=== PATIENT | male | born 1960 | race Caucasian/White ===

== ENCOUNTER 2024-02-18 16:05 | Emergency (ER) | payer OTHER, SELFPAY ==
[2024-02-18 16:09] VITALS: BP 150/81
[2024-02-18 16:22] VITALS: BMI 31.7
--- NOTE | 2024-02-18 16:57 | ED.SKININJ ---
HPI-Injury
General
Chief Complaint: Skin Problem
Source: patient
Exam Limitations: none
Time Seen by Provider: 02/18/24 16:33
Nursing documentation reviewed up to this point in time: agreed with
History of Present Illness-Injury
Initial Injury comments:
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
left ankle, the next morning he noted redness and swelling in the area. He thinks it may be an insect bite. He takes ibuprofen 800 mg 3 times a day for his headaches and this has helped the pain in his ankle. He denies N/V, denies fever or chills.
Past History
Past History
ED Past Medical History: HTN, NIDDM and Other ( migraines, traumatic brain injury, kidney stone)
ED Past Surgical History: Appendectomy, Cholecystectomy and Orthopedic
Social History
Tobacco: Former smoker (occasional cigar)
Alcohol: Occasional
Drug: None
Personal: Single
Living: with family
Employment: Not employed
Family History
Family History: Hypertension
Review of Systems
Review of Systems
Allergies reviewed?: Yes
All Other Systems: ROS reviewed and negative except as documented in HPI and ROS
Constitutional: Denies fever or chills
ABD/GI: Denies abdominal pain or nausea
Skin: Reports other (red, tender, swelling anteriorleft ankle past 2 days)
Neurological: Reports headache (chronic)
Phy Exam
Physical Exam
Physical Exam:
GENERAL: No acute distress. A&Ox3.
CONSTITUTIONAL: Afebrile.
RESPIRATORY: Regular respirations, nonlabored, lungs clear.
CARDIOVASCULAR: Regular rate and rhythm, no murmurs, no rubs.
GI: Soft, nontender, normal BS
MUSCULOSKELETAL: Moves with ease. Well perfused. Pt ambulates well
SKIN: Warm, dry, pink, Local red, tender mildly swollen area anterior left ankle. Skin intact, erythematous, no lymphangitis. Distal n/v intact.
PSYCH: Normal mood and affect. Well kept, interactive and appropriate
NEUROLOGIC: Awake, alert and oriented. No focal neurological deficits
Course
Vital Signs
Initial and Last Documented VS:
Initial Vital Signs
Temp Pulse Resp BP Pulse Ox
98.2 F 64 16 150/81 97
02/18/24 16:09 02/18/24 16:09 02/18/24 16:09 02/18/24 16:09 02/18/24 16:09
Last Documented Vital Signs
Temp Pulse Resp BP Pulse Ox
98.2 F 64 16 150/81 97
02/18/24 16:09 02/18/24 16:09 02/18/24 16:09 02/18/24 16:09 02/18/24 16:09
MDM/Problems Addressed
Differential Diagnosis Includes:
Cellulitis, insect bite
MDM/Problems Addressed:
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
left ankle, the next morning he noted redness and swelling in the area. He thinks it may be an insect bite. He takes ibuprofen 800 mg 3 times a day for his headaches and this has helped the pain in his ankle. He denies N/V, denies fever or chills.
Afebrile, NAD
Localized area of redness and mild swelling anterior left ankle consistent with a localized mild cellulitis, skin is intact, smooth and red.
Rx for Doxycycline sent to his pharmacy. Return instructions discussed. Area marked for observation
*Critical Care Note
Total Time (30-74mins, 75-104mins- exclusive of procedures): Not Applicable
ED Attending Note
-
Portions of this chart may have been created with voice recognition software.� Occasional wrong word or��sound alike� substitutions may have occurred due to the inherent limitations of voice recognition software.
Discharge Plan
Departure
Patient Disposition: Home (Routine Discharge)
Date of Disposition: 02/18/24
Time of Disposition: 16:53
Patient with high blood pressure during this ER visit?: No
Condition: Good
Discharge Problem:
Cellulitis of left ankle
Instructions: Cellulitis (Skin Infection), Adult (DC)
Prescriptions:
New
doxycycline hyclate 100 mg tablet
100 mg PO BID Qty: 20 0RF
No Action
ibuprofen 800 MG tablet
800 mg PO PRN PRN (Reason: pain/migraine)
aspirin 325 MG tablet
325 mg PO DAILY
atenolol 50 MG tablet
50 mg PO DAILY
multivitamin [Multi-Day] 1 EACH tablet
1 ea PO DAILY
metformin 500 MG tablet extended release 24 hr
1,000 mg PO BID
meclizine 25 MG tablet
25 mg PO TID Qty: 15 0RF
methylprednisolone [Medrol (Ulysses)] 4 MG tablets,dose pack
4 tab PO . DIRECT
Patient Comments:
Pt is on a taper of one less tablet a day and today is 4 tablets- 1 at breakfast, 1 at lunch, and 2 at dinner.
insulin detemir U-100 [Levemir FlexTouch U100 Insulin] 300 UNIT/3 ML insulin pen
32 unit SC DAILY
prednisone 20 MG tablet
20 mg PO BID Qty: 14 0RF
tramadol 50 MG tablet
50 mg PO Q6H PRN (Reason: pain) Qty: 20 0RF
gabapentin 300 MG capsule
300 mg PO TID Qty: 20 0RF
tamsulosin 0.4 MG capsule
0.4 mg PO DAILY Qty: 14 0RF
ketorolac 10 MG tablet
10 mg PO Q6HPRN PRN (Reason: pain) Qty: 16 0RF
Referrals:
Marichuy Guerrero MD [Family Provider] - As needed
Activity Restrictions/Additional Instructions:
As we discussed, rest with the foot elevated to the level of your heart is much as you can in the next 3 days to minimize throbbing pains and swelling.
Cool compress to the area 20 minutes off and on as much as you can in the next couple of days to soothe the area and help control the discomfort
I sent a prescription to your pharmacy for antibiotic Doxycycline to take for 10 days. If the area is 100% better in 7 days, you may stop the Doxycycline.
Doxycycline can increase your skin's sensitivity to sun so be sure to apply sunscreen generously while taking it.
Return here immediately if the red area spreads more than 2 inches in any direction, you develop nausea or vomiting, you develop fever or chills or feeling sicker in any way.
Interventions
Interventions:
*Risk Screen - Suicide Last Done: 02/18/24 16:22
*General Assessment Last Done: 02/18/24 16:09
*Neglect/Abuse Screening Last Done: 02/18/24 16:22
ED- Fall Risk Assessment Last Done: 02/18/24 16:22
*ED COVID-19 Vaccine History Last Done: 02/18/24 16:09
*Nursing Disposition Last Done: 02/18/24 17:19
ED-Skin Assessment Last Done: 02/18/24 16:22
Discharge Date and Time
Discharge Date/Time: 02/18/24 17:15
Print Language: KYRGYZ
--- NOTE | 2024-02-18 17:17 | EDRN ---
Reviewed discharge instructions with the patient. Verbalized understanding. Ambulated with steady gait to the [facility].
== END 2024-02-18 17:15 | disposition home or self-care (01) ==
LOC: EMR 16:05
PROVIDERS: EMERGENCY PHYSICIAN Emergency Medicine; FAMILY PHYSICIAN Internal Medicine
DX: L03.116 Cellulitis of left lower limb (principal); I10 Essential (primary) hypertension; E11.9 Type 2 diabetes mellitus without complications; Z87.891 Personal history of nicotine dependence
CPT/HCPCS: 99283

== ENCOUNTER 2025-03-26 18:47 | Emergency (ER) | payer OTHER, SELFPAY ==
[2025-03-26 18:50] VITALS: BP 163/86
--- NOTE | 2025-03-26 20:08 | ED.GENMED ---
History of Present Illness
General
Chief Complaint: Musculo-Skeletal Complaint
Source: patient
Exam Limitations: none
Time Seen by Provider: 03/26/25 19:58
History of Present Illness
History of Present Illness:
64-year-old male complaining of right hip pain. Points to the right lateral hip. No back pain. History of sciatica however this feels different. No fever chills abdominal pain distal numbness tingling weakness or other complaints. Able to bear
weight but with significant pain. He did drive himself here
Past History
Past History
ED Past Medical History: HTN, NIDDM and Other ( migraines, traumatic brain injury, kidney stone)
ED Past Surgical History: Appendectomy, Cholecystectomy and Orthopedic
Social History
Tobacco: Former smoker (occasional cigar)
Alcohol: Occasional
Drug: None
Personal: Single
Living: with family
Employment: Not employed
Family History
Family History: Hypertension
Review of Systems
Review of Systems
All Other Systems: Not applicable
Constitutional: Denies fever or chills
Phy Exam
Physical Exam
Physical Exam:
GENERAL: Alert and oriented in no apparent distress. Able to stand but appears uncomfortable with standing or position changing
EYE: Orbits normal.
CARDIAC: Regular rate and rhythm
LUNGS: No respiratory distress
ABDOMEN: Soft, without focal tenderness or distention
NEUROLOGICAL: Alert and oriented , grossly non-focal
SKIN: Warm and dry, no rash or lesion, no discoloration, skin intact.
MUSCULOSKELETAL: No edema,no deformity.Good color. Tenderness over the greater trochanter and slightly more medially towards the pelvis. Questionable mild swelling. No warmth or erythema. Some minimal pain with hip rotation although minimal.
Pain with flexion. No tenderness of the buttock. Negative straight leg raising.
PSYCH: Normal and appropriate interaction.
Course
Orders/Labs/Results
Orders:
Orders
03/26/25 18:53
Hip, Right 2-3 Views [CR Hip - RT w/wo Pel 2-3 Vw*] Urgent
Comment:
Reason For Exam: pain no injury
Include a pelvis x-ray?: Yes
03/26/25 20:05
IV Insert/Care/Rem.- Treatment PRN
Acetaminophen 1000MG/100Ml [Ofirmev] 1,000 mg in 100 ml IV ONCE
Acetaminophen IV Indication:: ED Narcotic Naive Pt-ONCE
Ketorolac [Toradol] 15 mg IV NOW STA
03/26/25 20:07
CT Lower Ext W/o Iv Cont Rt Urgent
Comment:
Reason For Exam: nontraumatic pain
03/26/25 20:15
Basic Metabolic Panel Urgent
CRP [C-Reactive Protein] Urgent
Complete Blood Count/With Diff Urgent
Erythrocyte Sed Rate Urgent
Abnormal Lab Results
03/26/25
20:15
Absolute Neuts (auto) 7.0 H 10^3/uL
(1.4-6.5)
Absolute Monos (auto) 0.9 H 10^3/uL
(0.1-0.6)
Lymphocytes % 16.8 L %
(20.5-51.1)
Creatinine 0.6 L mg/dL
(0.7-1.3)
Glucose 255 H mg/dl
(70-99)
C-Reactive Protein 10.40 H mg/L
(0.0-10.00)
03/26/25 20:15
03/26/25 20:15
Vital Signs
Initial and Last Documented VS:
Initial Vital Signs
Temp Pulse Resp BP Pulse Ox
97.7 F 76 16 163/86 98
03/26/25 18:50 03/26/25 18:50 03/26/25 18:50 03/26/25 18:50 03/26/25 18:50
Last Documented Vital Signs
Temp Pulse Resp BP Pulse Ox
98.3 F 76 16 163/86 98
03/26/25 22:00 03/26/25 18:50 03/26/25 18:50 03/26/25 18:50 03/26/25 20:10
MDM/Problems Addressed
Differential Diagnosis Includes:
Most suspicious of a bursitis/tendinitis. Low suspicion for septic arthritis. No fever or chills. No warmth or erythema. No trauma. Workup in progress
*Radiology
Radiology exam reviewed: radiology read reviewed (Calcific tendinitis right and left greater trochanter)
*Pulse Oximetry
SaO2: 98
Oxygen Mode of Delivery: Room air
Patient hypoxic: no
*Critical Care Note
Total Time (30-74mins, 75-104mins- exclusive of procedures): Not Applicable
Update Note
Update Note:
Minimal inflammatory marker elevation. All consistent with a tendinitis. This is my clinical impression. CT supports this diagnosis. Stable for discharge to follow-up. Copy of report given to patient
ED Attending Note
-
Portions of this chart may have been created with voice recognition software.� Occasional wrong word or��sound alike� substitutions may have occurred due to the inherent limitations of voice recognition software.
Discharge Plan
Departure
Patient Disposition: Home (Routine Discharge)
Date of Disposition: 03/26/25
Time of Disposition: 23:30
Patient with high blood pressure during this ER visit?: Yes
Discharge Problem:
Calcific tendinitis right hip
Instructions: Tendinopathy (DC), Hip pain - ED (DC)
Prescriptions:
No Action
ibuprofen 800 MG tablet
800 mg PO PRN PRN (Reason: pain/migraine)
aspirin 325 MG tablet
325 mg PO DAILY
atenolol 50 MG tablet
50 mg PO DAILY
multivitamin [Multi-Day] 1 EACH tablet
1 ea PO DAILY
metformin 500 MG tablet extended release 24 hr
1,000 mg PO BID
meclizine 25 MG tablet
25 mg PO TID Qty: 15 0RF
methylprednisolone [Medrol (Ulysses)] 4 MG tablets,dose pack
4 tab PO . DIRECT
Patient Comments:
Pt is on a taper of one less tablet a day and today is 4 tablets- 1 at breakfast, 1 at lunch, and 2 at dinner.
insulin detemir U-100 [Levemir FlexTouch U100 Insulin] 300 UNIT/3 ML insulin pen
32 unit SC DAILY
prednisone 20 MG tablet
20 mg PO BID Qty: 14 0RF
tramadol 50 MG tablet
50 mg PO Q6H PRN (Reason: pain) Qty: 20 0RF
gabapentin 300 MG capsule
300 mg PO TID Qty: 20 0RF
tamsulosin 0.4 MG capsule
0.4 mg PO DAILY Qty: 14 0RF
ketorolac 10 MG tablet
10 mg PO Q6HPRN PRN (Reason: pain) Qty: 16 0RF
doxycycline hyclate 100 mg tablet
100 mg PO BID Qty: 20 0RF
Referrals:
Deyanira Bearden DO [Active, Orthopedics] - Follow up in 5-7 days
Marichuy Guerrero MD [Family Provider, Internal Medicine]
Interventions
Interventions:
*Risk Screen - Suicide Last Done: 03/26/25 23:45
*General Assessment Last Done: 03/26/25 21:00
*Neglect/Abuse Screening Last Done: 03/26/25 21:00
*ED- Fall Risk Assessment Last Done: 03/26/25 21:00
*ED COVID-19 Vaccine History Last Done: 03/26/25 23:45
*Nursing Disposition Last Done: 03/26/25 23:45
ED-Musculoskeletal Assessment Last Done: 03/26/25 21:17
Discharge Date and Time
Discharge Date/Time: 03/26/25 23:45
Print Language: OCCITAN
[2025-03-26] MEDS: OFIRMEV 100 IV (20:19)
[2025-03-26] MEDS: TORADOL 15 MG IV (20:19)
[2025-03-26 20:28] LABS: Hematocrit 41.5 % (39.0-52.0); Hemoglobin 14.1 g/dL (13.0-18.0); Mean Corp Hgb Conc. 34.0 g/dL (33.0-37.0); Mean Corpuscular Volume 83.2 fL (80.0-94.0); Nucleated Red Blood Cells % 0 % (-); Platelet Count 248 10^3/uL (130-400); Red Cell Dist. Width 13.4 % (11.5-14.5)
[2025-03-26 20:41] LABS: Blood Urea Nitrogen 17 mg/dl (9-20); Calcium 9.4 mg/dl (8.4-10.2); Carbon Dioxide 27 mmol/L (22-30); Chloride 102 mmol/L (98-107); Glucose 255 mg/dl (70-99); Potassium 4.1 mmol/L (3.5-5.1); Sodium 135 mmol/L (135-145); eGFR > 60.00
[2025-03-26 20:45] LABS: C-Reactive Protein 10.40 mg/L (0.0-10.00)
== END 2025-03-26 23:45 | disposition home or self-care (01) ==
LOC: EMR 18:47
PROVIDERS: EMERGENCY PHYSICIAN Emergency Medicine; FAMILY PHYSICIAN Internal Medicine
DX: M65.28 Calcific tendinitis, other site (principal); I10 Essential (primary) hypertension; E11.9 Type 2 diabetes mellitus without complications; Z90.49 Acquired absence of other specified parts of digestive tract; Z87.891 Personal history of nicotine dependence
CPT/HCPCS: 99284; 96374; 96375; 73502; 73700; 80048; 85025; 85652; 86140